=== PATIENT | male | born 1970 | race Two or more races ===

== ENCOUNTER 2023-06-14 07:25 | Inpatient (IN) | payer MEDICAID, OTHER ==
[~2023-06-14] VITALS: Ht 162.6 cm; Wt 74.3 kg
[2023-06-14] MEDS ORDERED: SODIUM CHLORIDE 0.9% 1,000 ML IV ONE (08:15)
[2023-06-14 08:16] LABS: Basophils # (auto) 0 10 ^3/uL (0-0.2); Basophils % (auto) 0.1 % (0.0-2.0); Eosinophils # (auto) 0 10 ^3/uL (0-0.8); Hematocrit 36.1 % (41.0-53.0); Hemoglobin 12.3 g/dL (13.5-17.5); Lymphocytes # (auto) 0.8 10 ^3/uL (0.4-5.4); Lymphocytes % (auto) 7.9 % (10.0-50.0); Mean Corpuscular Hemoglobin 33.5 pg (28.0-32.0); Mean Corpuscular Hgb Conc. 34.1 g/dL (32.0-36.0); Mean Corpuscular Volume 98.3 fL (80.0-100.0); Monocytes # (auto) 0.8 10 ^3/uL (0-1.3); Monocytes % (auto) 7.5 % (0.0-12.0); Neutrophils % (auto) 84.5 % (37.0-80.0); Red Blood Cells 3.67 10^6/uL (4.5-5.90); White Blood Cell 10.7 10^3/uL (4.4-10.8)
[2023-06-14 08:47] LABS: Potassium 4.1 mmol/L (3.5-5.1)
[2023-06-14 09:06] LABS: Albumin 3.8 g/dL (3.4-5.0); BUN/Creatinine Ratio 44.1 (10.0-20.0); Bilirubin, Total 1.4 mg/dL (0.2-1.0); Calcium 8.9 mg/dL (8.7-10.4); Total Protein 7.6 g/dL (6.4-8.2)
[2023-06-14 11:57] LABS: Urine Bacteria NONE SEEN /hpf (None Seen); Urine Blood Negative /uL (Negative); Urine Clarity Clear (Clear); Urine Protein, UAD Negative (Negative); Urine Specific Gravity 1.024 (1.001-1.035); Urine Urobilinogen Normal (Negative); Urine WBC <1 /hpf (0 - 3); Urine pH 5.5 (5.0-8.0)
[2023-06-14 12:03] LABS: Urine Color Straw (Yellow)
[2023-06-14] MEDS ORDERED: OCTREOTIDE ACETATE 100 MCG in SODIUM CHL 0.9% 50 ML IV ONE (12:45)
[2023-06-14] MEDS ORDERED: PANTOPRAZOLE 40mg/50ML NS AE 50 ML IV ONE (12:45)
[2023-06-14] MEDS ORDERED: PANTOPRAZOLE 40 MG/10 ML VIAL INJ IV ONE (12:45)
[2023-06-14] MEDS ORDERED: LORazepam 2MG/ML-1ML VIAL IV ONE (12:45)
[2023-06-14] MEDS: OCTREOTIDE ACETATE 500 MCG in SODIUM CHL 0.9% 99 ML IV SCH (12:45)
[2023-06-14] MEDS ORDERED: NITROGLYCERIN 0.4 MG SL TAB SL PRN (14:00)
[2023-06-14] MEDS ORDERED: ONDANSETRON HCL 4 MG/2 ML VIAL IV PRN (14:00)
[2023-06-14] MEDS ORDERED: MORPHINE SULFATE INJ 2 MG/ml SYRG IV PRN (14:00)
[2023-06-14 14:06] LABS: INR 1.05 (0.9-1.15)
[2023-06-14] MEDS: SODIUM CHLORIDE 0.9% 1,000 ML IV SCH ×2 (14:15→21:48)
[2023-06-14] MEDS ORDERED: LORazepam 2MG/ML-1ML VIAL IV PRN (14:45)
[2023-06-14 15:09] LABS: Amphetamine Screen, Urine Neg (NEGATIVE)
[2023-06-14 15:10] LABS: Barbiturate Scree,Urine Neg (NEGATIVE); Benzodiazephine Screen, Urine Neg (NEGATIVE); Cocaine Screen, Urine Neg (NEGATIVE); Opiate Scree,Urine Neg (NEGATIVE); Phencyclidine Screen, Urine Neg (NEGATIVE)
[2023-06-14 15:11] LABS: Cannabinoid Screen, Urine Neg (NEGATIVE)
[2023-06-14 16:02] LABS: Basophils # (auto) 0 10 ^3/uL (0-0.2); Basophils % (auto) 0.2 % (0.0-2.0); Eosinophils # (auto) 0 10 ^3/uL (0-0.8); Hematocrit 33.2 % (41.0-53.0); Hemoglobin 11.3 g/dL (13.5-17.5); Lymphocytes # (auto) 1.3 10 ^3/uL (0.4-5.4); Lymphocytes % (auto) 16.8 % (10.0-50.0); Mean Corpuscular Hemoglobin 33.2 pg (28.0-32.0); Mean Corpuscular Volume 97.6 fL (80.0-100.0); Monocytes # (auto) 0.9 10 ^3/uL (0-1.3); Monocytes % (auto) 11.9 % (0.0-12.0); Neutrophils # (auto) 5.4 10 ^3/uL (1.6-8.6); Neutrophils % (auto) 71.1 % (37.0-80.0); Nucleated Red Blood Cells % 0.1 %; White Blood Cell 7.6 10^3/uL (4.4-10.8)
[2023-06-14 17:25] VITALS: PULSE 88; RESP 14; O2SAT 96
[2023-06-14 18:39] LABS: Hematocrit 29.2 % (41.0-53.0); Hemoglobin 9.9 g/dL (13.5-17.5); Mean Corpuscular Hemoglobin 33.5 pg (28.0-32.0); Mean Corpuscular Hgb Conc. 34.1 g/dL (32.0-36.0); Mean Corpuscular Volume 98.4 fL (80.0-100.0); Red Blood Cells 2.96 10^6/uL (4.5-5.90); White Blood Cell 6.5 10^3/uL (4.4-10.8)
[2023-06-14 18:45] LABS: Basophils % (manual) 0 (0.0-2.0); Blast Cells 0; Eosinophils % (manual) 0 (0-7); Metamyelocytes % 0; Myelocytes % 0; Promyelocytes % 0; Reactive Lymphocytes 0
[2023-06-14 20:05] VITALS: PULSE 79; RESP 16; O2SAT 97
[2023-06-14 20:29] LABS: Band Neutrophils % (manual) 2; Lymphocytes % (manual) 15 (10.0-50.0); Monocytes % (manual) 11 (0-12); Platelet Estimate Adequate; RBC Morphology Normal
[2023-06-14] MEDS: PANTOPRAZOLE 40 MG/10 ML VIAL INJ IV SCH (22:00)
[2023-06-14 22:06] LABS: Basophils # (auto) 0 10 ^3/uL (0-0.2); Basophils % (auto) 0.3 % (0.0-2.0); Eosinophils # (auto) 0 10 ^3/uL (0-0.8); Eosinophils % (auto) 0.1 % (0.0-7.0); Hematocrit 28.3 % (41.0-53.0); Hemoglobin 9.6 g/dL (13.5-17.5); Lymphocytes # (auto) 1.5 10 ^3/uL (0.4-5.4); Lymphocytes % (auto) 25.6 % (10.0-50.0); Mean Corpuscular Hemoglobin 33.2 pg (28.0-32.0); Mean Corpuscular Hgb Conc. 33.8 g/dL (32.0-36.0); Mean Corpuscular Volume 98.2 fL (80.0-100.0); Monocytes # (auto) 0.9 10 ^3/uL (0-1.3); Monocytes % (auto) 16.2 % (0.0-12.0); Neutrophils # (auto) 3.3 10 ^3/uL (1.6-8.6); Neutrophils % (auto) 57.8 % (37.0-80.0); Nucleated Red Blood Cells % 0.1 %; Red Blood Cells 2.88 10^6/uL (4.5-5.90); Red Cell Distribution Width 14.7 % (11.8-14.3); White Blood Cell 5.7 10^3/uL (4.4-10.8)
[2023-06-14] MEDS ORDERED: OCTREOTIDE ACETATE 500 MCG/ML VL ONE (23:24)
[2023-06-15] VITALS (9 sets, daily range): BP systolic 120–157; BP diastolic 71–92; PULSE 66–111; RESP 14–18; TEMP 97.4–98.4; O2SAT 94–100
[2023-06-15] MEDS: OCTREOTIDE ACETATE 500 MCG in SODIUM CHL 0.9% 99 ML IV SCH ×3 (00:08→18:32)
[2023-06-15] MEDS: SODIUM CHLORIDE 0.9% 1,000 ML IV SCH ×5 (00:55→20:15)
[2023-06-15] MEDS ORDERED: PNEUMOCOCCAL VACC POLYS 25 MCG/0.5 ML VIAL IM ONE (05:45)
[2023-06-15 06:03] LABS: Basophils # (auto) 0 10 ^3/uL (0-0.2); Basophils % (auto) 0.6 % (0.0-2.0); Eosinophils # (auto) 0 10 ^3/uL (0-0.8); Eosinophils % (auto) 0.7 % (0.0-7.0); Hematocrit 28.1 % (41.0-53.0); Hemoglobin 9.5 g/dL (13.5-17.5); Lymphocytes # (auto) 1.2 10 ^3/uL (0.4-5.4); Lymphocytes % (auto) 26.5 % (10.0-50.0); Mean Corpuscular Hemoglobin 33.7 pg (28.0-32.0); Mean Corpuscular Volume 99.3 fL (80.0-100.0); Monocytes # (auto) 0.7 10 ^3/uL (0-1.3); Monocytes % (auto) 14.9 % (0.0-12.0); Neutrophils # (auto) 2.6 10 ^3/uL (1.6-8.6); Neutrophils % (auto) 57.3 % (37.0-80.0); Nucleated Red Blood Cells % 0.1 %; Red Blood Cells 2.83 10^6/uL (4.5-5.90); Red Cell Distribution Width 14.9 % (11.8-14.3); White Blood Cell 4.6 10^3/uL (4.4-10.8)
[2023-06-15 06:24] LABS: Alanine Aminotransferase 51 U/L (7-40); Albumin 3.6 g/dL (3.2-4.8); Alkaline Phosphatase 38 U/L (46-116); Anion Gap 7.2 (5-15); Aspartate Aminotransferase 63 U/L (13-40); BUN/Creatinine Ratio 30.7 (10.0-20.0); Blood Urea Nitrogen 23 mg/dL (9-23); Calcium 8.2 mg/dL (8.5-10.1); Carbon Dioxide 26.8 mmol/L (20-30); Chloride 109 mmol/L (98-107); Glucose 118 mg/dL (74-106); LDL Cholesterol 67 mg/dL (< 100); Potassium 3.9 mmol/L (3.5-5.1); Sodium 143 mmol/L (136-145); Triglycerides 56 mg/dL (< 150)
[2023-06-15 06:25] LABS: Bilirubin, Total 2.1 mg/dL (0.2-1.0); Cholesterol 132 mg/dL (< 200); HDL Cholesterol 55 mg/dL (40-59); Total Protein 5.8 g/dL (5.7-8.2)
[2023-06-15] MEDS ORDERED: FLUMAZENIL 0.1 MG/ML INJ 10ML MDV IV ONE (08:41)
[2023-06-15] MEDS ORDERED: NALOXONE HCL 0.4 MG/ML VIAL ONE (08:41)
[2023-06-15] MEDS: PANTOPRAZOLE 40 MG/10 ML VIAL INJ IV SCH ×2 (09:24→21:29)
[2023-06-15] MEDS ORDERED: LIDOCAINE VISCOUS 2% 15ML UD ONE (11:58)
[2023-06-15] MEDS ORDERED: SODIUM CHLORIDE LOCK 10 ML ONE (11:58)
[2023-06-15] MEDS: FOLIC ACID 1 MG, MULTIPLE VITAMIN 10 ML, MAGNESIUM SULF SDV 50% 8 MEQ, THIAMINE INJ 100... INJ SCH ×5 (13:49)
[2023-06-15] MEDS: fentaNYL CITRATE 100 MCG/2 ML VL ONE ×2 (16:16→16:19)
[2023-06-15] MEDS: diphenhdrAMINE HCL 50 MG/1 ML VL ONE ×2 (16:16→16:18)
[2023-06-15] MEDS: MIDAZOLAM HCL 5 MG/ML-1ML VIAL ONE ×2 (16:16→16:19)
[2023-06-15] MEDS: SUCRALFATE 1 GM/10 ML ORAL SUSP PO SCH (21:29)
[2023-06-16] MEDS: SODIUM CHLORIDE 0.9% 1,000 ML IV SCH ×4 (02:44→16:48)
[2023-06-16] MEDS: OCTREOTIDE ACETATE 500 MCG in SODIUM CHL 0.9% 99 ML IV SCH (04:45)
[2023-06-16 05:00] VITALS: BP 119/72; PULSE 78; RESP 18; TEMP 97.9; O2SAT 97
[2023-06-16] MEDS: SUCRALFATE 1 GM/10 ML ORAL SUSP PO SCH ×2 (06:05→11:22)
[2023-06-16 07:30] VITALS: PULSE 60; PULSE 80
[2023-06-16 08:49] LABS: Basophils # (auto) 0 10 ^3/uL (0-0.2); Eosinophils # (auto) 0.1 10 ^3/uL (0-0.8); Eosinophils % (auto) 2.8 % (0.0-7.0); Hematocrit 29.8 % (41.0-53.0); Lymphocytes # (auto) 1.1 10 ^3/uL (0.4-5.4); Lymphocytes % (auto) 23.2 % (10.0-50.0); Mean Corpuscular Hemoglobin 33.1 pg (28.0-32.0); Mean Corpuscular Hgb Conc. 33.5 g/dL (32.0-36.0); Mean Corpuscular Volume 98.8 fL (80.0-100.0); Monocytes # (auto) 0.5 10 ^3/uL (0-1.3); Monocytes % (auto) 10.1 % (0.0-12.0); Neutrophils % (auto) 62.9 % (37.0-80.0); Nucleated Red Blood Cells % 0.1 %; Red Blood Cells 3.02 10^6/uL (4.5-5.90); Red Cell Distribution Width 14.5 % (11.8-14.3); White Blood Cell 4.7 10^3/uL (4.4-10.8)
[2023-06-16 08:52] VITALS: BP 138/100; PULSE 71; RESP 17; TEMP 98.1; O2SAT 95
[2023-06-16 09:39] LABS: Hepatitis B Surface Antigen Negative (Negative)
[2023-06-16 09:41] LABS: Anion Gap 6.2 (5-15); Carbon Dioxide 26.8 mmol/L (20-30); Chloride 104 mmol/L (98-107); Potassium 3.5 mmol/L (3.5-5.1); Sodium 137 mmol/L (136-145)
[2023-06-16 09:42] LABS: Calcium 8.5 mg/dL (8.5-10.1)
[2023-06-16 09:47] LABS: Glucose 160 mg/dL (74-106)
[2023-06-16 09:48] LABS: BUN/Creatinine Ratio 10.8 (10.0-20.0)
[2023-06-16 09:49] LABS: Blood Urea Nitrogen 7 mg/dL (9-23)
[2023-06-16 10:00] LABS: Hepatitis A Ab IgM Negative; Hepatitis B Core IgM Negative
[2023-06-16] MEDS ORDERED: SUCR1SUS26 PO (10:00)
[2023-06-16] MEDS ORDERED: PANT40TA2 PO (10:00)
[2023-06-16 10:02] LABS: Hepatitis C Antibody Negative (Negative)
[2023-06-16] MEDS: PANTOPRAZOLE 40 MG/10 ML VIAL INJ IV SCH (11:22)
[2023-06-16 12:50] VITALS: BP 105/64; PULSE 77; RESP 18; TEMP 97.9; O2SAT 94
[2023-06-16 13:00] VITALS: BP 137/86; PULSE 71; RESP 17; TEMP 97.9; O2SAT 96
[2023-06-16] MEDS: FOLIC ACID 1 MG, MULTIPLE VITAMIN 10 ML, MAGNESIUM SULF SDV 50% 8 MEQ, THIAMINE INJ 100... INJ SCH ×5 (15:39)
== END 2023-06-16 16:20 | disposition home or self-care (01) | DRG 241 ==
LOC: ER 07:25 → TELE 14:11 → TELE-WESTW 06-15
PROVIDERS: ADMIT Internal Medicine Pulmonary Disease
PROC: 0DB68ZX Excision of Stomach, Via Natural or Artificial Opening Endoscopic, Diagnostic (ICD-10-PCS; 2023-06-15)
PROC: 0DB98ZX Excision of Duodenum, Via Natural or Artificial Opening Endoscopic, Diagnostic (ICD-10-PCS; principal; 2023-06-15 16:11)
DX: K25.4 Chronic or unspecified gastric ulcer with hemorrhage (principal); K70.30 Alcoholic cirrhosis of liver without ascites; Z93.0 Tracheostomy status; K22.6 Gastro-esophageal laceration-hemorrhage syndrome; D62 Acute posthemorrhagic anemia; K92.0 Hematemesis; E86.0 Dehydration; F10.139 Alcohol abuse with withdrawal, unspecified; K44.9 Diaphragmatic hernia without obstruction or gangrene; K92.1 Melena
CPT/HCPCS: 36415; 43239; 76705; 80048; 80053; 80061; 80074; 80307; 81001; 82962; 83036; 83690; 85007; 85025; 85027; 85610; 86850; 86900; 86901; 96361; 96365; 96366; 96375; 99291; C9113; G0378; J2250